=== PATIENT | male | born 1985 | race Caucasian/White ===

== ENCOUNTER 2016-11-06 17:07 | Emergency (ER) | payer MEDICAID ==
[~2016-11-06] VITALS: Ht 182.9 cm; Wt 120.2 kg
[2016-11-06] MEDS ORDERED: ACETAMINOPHEN 325 MG TAB PO ONE ×2 (18:07→18:15)
[2016-11-06] MEDS ORDERED: ONDANSETRON ODT 4 MG TAB PO ONE (18:15)
[2016-11-06 19:55] VITALS: BP 122/74
== END 2016-11-06 20:06 | disposition home or self-care (01) ==
LOC: ER 17:12
DX: S13.9XXA Sprain of joints and ligaments of unspecified parts of neck, initial encounter (principal); S00.93XA Contusion of unspecified part of head, initial encounter; I10 Essential (primary) hypertension; R42 Dizziness and giddiness; R53.1 Weakness; F17.210 Nicotine dependence, cigarettes, uncomplicated; G80.9 Cerebral palsy, unspecified; W18.39XA Other fall on same level, initial encounter; Z91.81 History of falling; Y93.01 Activity, walking, marching and hiking; Y99.8 Other external cause status; Y92.89 Other specified places as the place of occurrence of the external cause
CPT/HCPCS: 70450; 72125; 99284; Q0162